=== PATIENT | male | born 1990 | race African-American/Black ===

== ENCOUNTER 2016-09-18 17:35 | Emergency (ER) | payer SELFPAY ==
--- NOTE | ~2016-09-18 | CT4 ---
[facility] A Service of [facility] RADIOLOGY TEXT RESULTS PATIENT: KASIE BOWMAN LOCATION: SED : [birth year] UNIT #: [id number] AGE: [address]: Marguerite Braxton PAC SEX: M ORDER DR: [id number] [address] [id number] E MR#: [id number] Acc #: [id number] NAME: KASIE BOWMAN : 1990 SEX: M STUDY DATE/TIME: 09/18/2016 19:34 UNIT: SED ROOM: STUDY DESCRIPTION: CT Abd and Pelv Wo Cont Attending Physician: Marguerite Braxton Pa-C Ordering Physician: Marguerite Braxton Pa-C MEDICAL IMAGING REPORT This report is preliminary unless electronic signature is present. EXAM CT abdomen and pelvis without contrast HISTORY Hematuria and right flank pain for [address] exam was performed with one or more of the following radiation dose reduction techniques: automatic control, adjustment of mA and/or kV according to patient size, and iterative reconstruction. FINDINGS CT abdomen and pelvis was performed without contrast CT ABDOMEN: No renal calculi. No hydronephrosis or ureteral dilatation. The liver, gallbladder, spleen, pancreas, and adrenal glands are normal. Normal caliber abdominal aorta. No bowel dilatation. No ascites. CT PELVIS: Normal appendix. Urinary bladder is unremarkable. No bowel dilatation. IMPRESSION 1. Negative noncontrast CT abdomen and pelvis. 2. No urinary calculi or obstruction. 3. Normal appendix. Dictated by... João Wren M.D. THIS IS AN ELECTRONICALLY VERIFIED REPORT João Wren M.D. at 09/19/2016 11:43 PM [facility] A Service [facility] RADIOLOGY TEXT RESULTS PATIENT: KASIE BOWMAN LOCATION: SED : [birth year] UNIT #: [id number] AGE: [address]: Marguerite Braxton PAC SEX: M ORDER DR: FLORENCE/jony TD: 09/19/2016 03:19 JOB #: [id number] MEDICAL IMAGING REPORT Page 1 of 1
[2016-09-18] MEDS ORDERED: NO MEDICATIONS (18:04)
[2016-09-18 18:39] LABS: URINE SOURCE CLEAN CATCH
[2016-09-18 18:41] LABS: URINE APPEARANCE CLOUDY; URINE BLOOD 3+ (NEG); URINE COLOR AMBER; URINE GLUCOSE NEG (NORM); URINE KETONE TRACE (NEG); URINE NITRATE NEG (NEG); URINE PROTEIN 1+ (NEG); URINE SPECIFIC GRAVITY >=1.030 (1.003-1.035)
[2016-09-18 18:51] LABS: MICRO INDICATED? YES; URINE BILIRUBIN NEG (NEG); URINE LEUKOCYTE ESTERASE 2+ (NEG)
[2016-09-18 18:52] LABS: URINE RBC INNUM /[HPF] (0-2)
[2016-09-18 18:53] LABS: CULTURE INDICATED? YES; URINE BACTERIA NEG (NEG); URINE MUCUS PRESENT; URINE SQUAMOUS EPITHELIAL CELL OCCAS /[HPF]; URINE TRANSITIONAL EPI CELLS FEW /[HPF]
== END 2016-09-18 20:42 | disposition home or self-care (01) ==
LOC: SED 17:35
PROVIDERS: Emergency Medicine
DX: R31.9 Hematuria, unspecified (principal); F17.210 Nicotine dependence, cigarettes, uncomplicated
CPT/HCPCS: 74176; 81003; 87086; 99284